=== PATIENT | female | born 1955 | race Caucasian/White ===

== ENCOUNTER 2024-01-16 20:24 | Inpatient (IN) | payer MEDICARE, OTHER ==
[~2024-01-16 20:24] MED LIST: HEPARIN SODIUM,PORCINE 5,000 UNIT/ML 1 ML VIAL ONE
[2024-01-16] MEDS ORDERED: methylPREDNISolone SOD SUCCI 125 MG/2 ML VIAL ONE (20:34)
[2024-01-16] MEDS ORDERED: diphenhydrAMINE 50 MG/ML 1 ML VIAL ONE (20:34)
[2024-01-16] MEDS ORDERED: NITROGLYCERIN SL TABS 0.4 MG TAB SUBLINGUAL ONE ×3 (20:35→21:07)
[2024-01-16] MEDS ORDERED: SODIUM CHLORIDE 0.9% 1,000 ML BAG ONE ×2 (20:50→20:58)
[2024-01-16] MEDS ORDERED: HEPARIN SODIUM,PORCINE 5,000 UNIT/ML 1 ML VIAL ONE (20:50)
[2024-01-16] MEDS ORDERED: SODIUM CHLORIDE 0.9% 250 ML BAG ONE (20:50)
[2024-01-16] MEDS ORDERED: HEPARIN SODIUM,PORCINE 10,000 UNIT/ML 1 ML VIAL ONE ×2 (20:50→20:58)
[2024-01-16] MEDS ORDERED: MIDAZOLAM 2 MG/2 ML VIAL ONE (20:51)
[2024-01-16] MEDS ORDERED: HEPARIN SODIUM 1,000 UN/ML (10ML VL) ONE (20:52)
[2024-01-16] MEDS ORDERED: fentaNYL (PF) 50 MCG/ML 2 ML AMP ONE (20:52)
[2024-01-16] MEDS ORDERED: SODIUM CHLORIDE 0.9% 500 ML BAG ONE (20:58)
[2024-01-16] MEDS ORDERED: LIDOCAINE 1% (PF) 10 MG/ML (30 ML SDV) ONE (20:58)
[2024-01-16] MEDS ORDERED: hydrALAZINE HCL 20 MG/ML 1 ML VIAL ONE (21:00)
[2024-01-16] MEDS ORDERED: TICAGRELOR 90 MG TAB ONE (21:07)
[2024-01-16] MEDS ORDERED: NITROGLYCERIN-D5W PMX 25 MG/250 ML BTL IV ONE ×2 (21:31→21:42)
[2024-01-16] MEDS: IOPAMIDOL-370 200ML BTL INJ ONE (21:45)
[2024-01-17] MEDS ORDERED: GABAPENTIN 300 MG CAP ONE ×3 (02:00→20:34)
[2024-01-17] MEDS ORDERED: MAGNESIUM SULFATE-D5W PMX 100 ML IVPB ONE ×2 (02:00→03:33)
[2024-01-17] MEDS ORDERED: LORATADINE 10 MG TAB ONE (02:02)
[2024-01-17] MEDS ORDERED: HYDROcodone/APAP 10-325MG 1 EACH TAB ONE ×2 (03:32→20:28)
[2024-01-17] MEDS ORDERED: LOSARTAN 50 MG TAB ONE ×3 (08:52→18:28)
[2024-01-17] MEDS ORDERED: METOPROLOL TARTRATE 25 MG TAB ONE ×2 (08:52→20:28)
[2024-01-17] MEDS ORDERED: TICAGRELOR 90 MG TAB ONE ×2 (08:52→20:29)
[2024-01-17] MEDS ORDERED: ACETAMINOPHEN TAB 325 MG TAB ONE ×2 (11:00→23:38)
[2024-01-17] MEDS ORDERED: ASPIRIN 81 MG ONE (13:23)
[2024-01-17] MEDS ORDERED: SPIRONOLACTONE 25 MG TAB ONE (18:29)
[2024-01-17] MEDS ORDERED: PANTOPRAZOLE 40 MG TABLET PO ONE (18:33)
[2024-01-17] MEDS ORDERED: ATORVASTATIN 80 MG TAB ONE (20:28)
[2024-01-17] MEDS ORDERED: LORazepam 0.5 MG TAB ONE (20:28)
[2024-01-17] MEDS ORDERED: AMITRIPTYLINE HCL 25 MG TAB ONE (23:59)
[2024-01-17] MEDS ORDERED: VENLAFAXINE HCL ER 150 MG CAP PO ONE (23:59)
[2024-01-17] MEDS ORDERED: SODIUM CHLORIDE 0.9% 1,000 ML BAG ONE (23:59)
[2024-01-18] MEDS ORDERED: ALBUTEROL NEBULIZED 2.5 MG/3 ML INHALATION ONE (05:11)
[2024-01-18] MEDS ORDERED: PANTOPRAZOLE 40 MG TABLET PO ONE ×2 (06:23→09:55)
[2024-01-18] MEDS ORDERED: GABAPENTIN 300 MG CAP ONE ×3 (06:23→21:30)
[2024-01-18] MEDS ORDERED: HYDROcodone/APAP 10-325MG 1 EACH TAB ONE ×3 (06:23→23:33)
[2024-01-18] MEDS ORDERED: ASPIRIN 325 MG TAB ONE (09:55)
[2024-01-18] MEDS ORDERED: methylPREDNISolone SOD SUCCI 125 MG/2 ML VIAL ONE ×2 (09:55→10:35)
[2024-01-18] MEDS ORDERED: SPIRONOLACTONE 25 MG TAB ONE (09:55)
[2024-01-18] MEDS ORDERED: METOPROLOL TARTRATE 25 MG TAB ONE ×2 (09:55→21:30)
[2024-01-18] MEDS ORDERED: TICAGRELOR 90 MG TAB ONE ×2 (09:56→21:31)
[2024-01-18] MEDS ORDERED: FAMOTIDINE 20 MG TAB ONE (09:56)
[2024-01-18] MEDS ORDERED: diphenhydrAMINE 25 MG CAP ONE (10:14)
[2024-01-18] MEDS ORDERED: LIDOCAINE 1% INJ 10MG/ML (20 ML MDV) ONE (14:47)
[2024-01-18] MEDS ORDERED: VERAPAMIL 2.5 MG/ML 2 ML AMP ONE (14:47)
[2024-01-18] MEDS ORDERED: ATORVASTATIN 80 MG TAB ONE (21:30)
[2024-01-18] MEDS ORDERED: LOSARTAN 50 MG TAB ONE (21:32)
[2024-01-18] MEDS ORDERED: AMITRIPTYLINE HCL 25 MG TAB ONE (23:59)
[2024-01-18] MEDS ORDERED: VENLAFAXINE HCL ER 150 MG CAP PO ONE (23:59)
[2024-01-18] MEDS ORDERED: SODIUM CHLORIDE 0.9% 1,000 ML BAG ONE (23:59)
[2024-01-19] MEDS ORDERED: LORazepam 0.5 MG TAB ONE ×2 (02:37→20:58)
[2024-01-19] MEDS ORDERED: GABAPENTIN 300 MG CAP ONE ×3 (06:19→20:58)
[2024-01-19] MEDS ORDERED: PANTOPRAZOLE 40 MG TABLET PO ONE (06:19)
[2024-01-19] MEDS ORDERED: SODIUM CHLORIDE 0.9% 1,000 ML BAG ONE ×3 (10:30→11:30)
[2024-01-19] MEDS ORDERED: HEPARIN SODIUM,PORCINE 10,000 UNIT/ML 1 ML VIAL ONE (10:30)
[2024-01-19] MEDS ORDERED: ASPIRIN 325 MG TAB ONE (10:30)
[2024-01-19] MEDS ORDERED: SPIRONOLACTONE 25 MG TAB ONE (10:30)
[2024-01-19] MEDS ORDERED: diphenhydrAMINE 50 MG/ML 1 ML VIAL ONE (10:30)
[2024-01-19] MEDS ORDERED: METOPROLOL TARTRATE 25 MG TAB ONE ×2 (10:30→19:56)
[2024-01-19] MEDS ORDERED: methylPREDNISolone SOD SUCCI 125 MG/2 ML VIAL ONE (10:30)
[2024-01-19] MEDS ORDERED: TICAGRELOR 90 MG TAB ONE ×2 (10:31→19:56)
[2024-01-19] MEDS ORDERED: FAMOTIDINE 20 MG/2 ML VIAL ONE (10:31)
[2024-01-19] MEDS ORDERED: NITROGLYCERIN-D5W PMX 25 MG/250 ML BTL IV ONE (11:30)
[2024-01-19] MEDS ORDERED: HEPARIN SODIUM 1,000 UN/ML (10ML VL) ONE (11:39)
[2024-01-19] MEDS ORDERED: MIDAZOLAM 2 MG/2 ML VIAL ONE ×2 (11:39→12:10)
[2024-01-19] MEDS ORDERED: fentaNYL (PF) 50 MCG/ML 2 ML AMP ONE (11:40)
[2024-01-19] MEDS ORDERED: VERAPAMIL 2.5 MG/ML 2 ML AMP ONE ×2 (11:48→12:14)
[2024-01-19] MEDS ORDERED: LIDOCAINE 1% INJ 10MG/ML (20 ML MDV) ONE (11:48)
[2024-01-19] MEDS: IOPAMIDOL-370 200ML BTL INJ ONE (12:40)
[2024-01-19] MEDS ORDERED: HYDROcodone/APAP 10-325MG 1 EACH TAB ONE ×2 (16:17→20:58)
[2024-01-19] MEDS ORDERED: LOSARTAN 50 MG TAB ONE (19:55)
[2024-01-19] MEDS ORDERED: ATORVASTATIN 80 MG TAB ONE (19:56)
[2024-01-19] MEDS ORDERED: AMITRIPTYLINE HCL 25 MG TAB ONE (19:56)
[2024-01-19] MEDS ORDERED: VENLAFAXINE HCL ER 150 MG CAP PO ONE (23:59)
[2024-01-20] MEDS ORDERED: PANTOPRAZOLE 40 MG TABLET PO ONE ×2 (06:13→15:17)
[2024-01-20] MEDS ORDERED: GABAPENTIN 300 MG CAP ONE ×3 (06:13→20:15)
[2024-01-20] MEDS ORDERED: ASPIRIN 81 MG ONE (07:44)
[2024-01-20] MEDS ORDERED: SPIRONOLACTONE 25 MG TAB ONE (07:44)
[2024-01-20] MEDS ORDERED: METOPROLOL TARTRATE 25 MG TAB ONE ×2 (07:44→20:15)
[2024-01-20] MEDS ORDERED: TICAGRELOR 90 MG TAB ONE ×2 (07:45→20:15)
[2024-01-20] MEDS ORDERED: HYDROcodone/APAP 10-325MG 1 EACH TAB ONE (18:36)
[2024-01-20] MEDS ORDERED: AMITRIPTYLINE HCL 25 MG TAB ONE (20:15)
[2024-01-20] MEDS ORDERED: LOSARTAN 50 MG TAB ONE (20:15)
[2024-01-20] MEDS ORDERED: ATORVASTATIN 80 MG TAB ONE (20:26)
[2024-01-20] MEDS ORDERED: LORazepam 0.5 MG TAB ONE (20:41)
[2024-01-20] MEDS ORDERED: VENLAFAXINE HCL ER 150 MG CAP PO ONE (23:59)
[2024-01-21] MEDS ORDERED: PANTOPRAZOLE 40 MG TABLET PO ONE (05:34)
[2024-01-21] MEDS ORDERED: GABAPENTIN 300 MG CAP ONE (05:34)
[2024-01-21] MEDS ORDERED: METOPROLOL TARTRATE 25 MG TAB ONE (08:38)
[2024-01-21] MEDS ORDERED: ASPIRIN 81 MG ONE (08:38)
[2024-01-21] MEDS ORDERED: SPIRONOLACTONE 25 MG TAB ONE (08:38)
[2024-01-21] MEDS ORDERED: TICAGRELOR 90 MG TAB ONE (08:38)
[2024-01-21] MEDS ORDERED: VENLAFAXINE HCL ER 150 MG CAP PO ONE (12:00)
--- NOTE | 2024-02-15 13:56 | CA ---
Transthoracic Echo Report Name: Madi Bermudez Age: 69 Gender: O : 1955 Exam Date: 01/20/2024 11:39 Exam Location: [facility] Ht (in): 67 Wt (lb): 190 Ordering Physician: Attending/Referring Phys: International Relations Teacher Ivanna Gill RDCS Procedure CPT: Indications: Cardiac Hx: stents Technical Quality: Good Contrast 1: Total Dose (mL): Contrast 2: Total Dose (mL): MEASUREMENTS (Male / Female) Normal Values 2D ECHO LV Diastolic Diameter PLAX 4.1 cm 4.2 - 5.9 / 3.9 - 5.3 cm LV Systolic Diameter PLAX 3.2 cm IVS Diastolic Thickness 1.1 cm 0.6 - 1.0 / 0.6 - 0.9 cm LVPW Diastolic Thickness 1.4 cm 0.6 - 1.0 / 0.6 - 0.9 cm LV Relative Wall Thickness 0.6 RV Internal Dim ED PLAX 3.1 cm LA Systolic Diameter LX 3.3 cm 3.0 - 4.0 / 2.7 - 3.8 cm LV Diastolic Volume MOD BP 79.7 cm??? 67 - 155 / 56 - 104 cm??? LV Systolic Volume MOD BP 34.5 cm??? 22 - 58 / 19 - 49 cm??? LV Ejection Fraction MOD BP 56.8 % >= 55 % LV Cardiac Index MOD BP 1616.7 cm???/min???m??? LV Diastolic Volume MOD 4C 72.9 cm??? LV Systolic Volume MOD 4C 29.9 cm??? LV Ejection Fraction MOD 4C 59.0 % LV Cardiac Index MOD 4C 1537.0 cm???/min???m??? LV Diastolic Length 4C 6.6 cm LV Systolic Length 4C 5.4 cm LV Diastolic Volume MOD 2C 84.2 cm??? LV Systolic Volume MOD 2C 38.4 cm??? LV Ejection Fraction MOD 2C 54.4 % LV Cardiac Index MOD 2C 1635.7 cm???/min???m??? LV Diastolic Length 2C 7.1 cm LV Systolic Length 2C 5.7 cm LA Volume 50.7 cm??? 18 - 58 / 22 - 52 cm??? LA Volume Index 24.8 cm???/m??? 16 - 28 cm???/m??? M-MODE Aortic Root Diameter MM 3.6 cm AV Cusp Separation MM 2.2 cm DOPPLER AV Peak Velocity 101.6 cm/s AV Peak Gradient 4.1 mmHg MV Area PHT 1.7 cm??? Mitral E Point Velocity 54.5 cm/s Mitral A Point Velocity 87.4 cm/s Mitral E to A Ratio 0.6 MV Deceleration Time 449.1 ms FINDINGS Left Ventricle Left ventricular ejection fraction is estimated at 50-55 %. Left ventricular cavity size normal. Mild concentric left ventricular hypertrophy. No obvious regional wall motion abnormalities. Right Ventricle Normal right ventricular size. Unable to estimate the right ventricular systolic pressure. Right Atrium Right atrium not well visualized. Left Atrium Normal left atrial size. No left atrial thrombus or mass present. Mitral Valve Mitral valve thickened. Mitral annular calcification. Trace mitral regurgitation. Aortic Valve Trileaflet aortic valve. No aortic valve stenosis or regurgitation. Tricuspid Valve Structurally normal tricuspid valve. No tricuspid stenosis, regurgitation or prolapse. Pulmonic Valve Structurally normal pulmonic valve. Trace pulmonic regurgitation. Pericardium No pericardial or pleural effusion. Aorta Normal size aortic root and proximal ascending aorta. CONCLUSIONS 1. Left ventricular systolic function borderline normal 2. Trace mitral regurgitation Previewed by: Dr. Benjamin English MD (Electronically Signed) Final Date: 20 January 2024 13:32
--- NOTE | 2024-02-17 06:24 | XR ---
Patient Madi Bermudez ID [id number] Order # EXAMINATION TYPE: XR chest 1V DATE OF EXAM: 01/16/2024 COMPARISON: No comparison available on downtime PACS. INDICATION: Chest pain TECHNIQUE: Single frontal view of the chest is obtained. FINDINGS: The heart size is normal. The pulmonary vasculature is normal. Some mild infiltrates in the left upper lung field. Correlate for developing pneumonia and atelectasi s. Minimal infiltrate at the right base may be some atelectasis. IMPRESSION: 1. Mild infiltrate left upper lobe. Correlate for atelectasis and pneumonia. 2. Mild subsegmental atelectasis likely present right lung base.
== END 2024-01-21 12:27 | disposition home or self-care (01) | DRG 322 ==
LOC: EDSEX → CATHCVL 20:24 → MERGE 20:25 → 3SCARD 20:25
PROVIDERS: ADMIT Hospitalist; ATTEND Hospitalist
PROC: 4A023N7 Measurement of Cardiac Sampling and Pressure, Left Heart, Percutaneous Approach (ICD-10-PCS; principal; 2024-01-16 20:58)
PROC: B240ZZ3 Ultrasonography of Single Coronary Artery, Intravascular (ICD-10-PCS; principal; 2024-01-16 20:58)
PROC: B2111ZZ Fluoroscopy of Multiple Coronary Arteries using Low Osmolar Contrast (ICD-10-PCS; principal; 2024-01-16 20:58)
PROC: 02C03Z7 Extirpation of Matter from Coronary Artery, One Artery, Orbital Atherectomy Technique, Percutaneous Approach (ICD-10-PCS; principal; 2024-01-16 20:58)
PROC: 027034Z Dilation of Coronary Artery, One Artery with Drug-eluting Intraluminal Device, Percutaneous Approach (ICD-10-PCS; 2024-01-19 12:00)
DX: I21.4 Non-ST elevation (NSTEMI) myocardial infarction (principal); I25.119 Atherosclerotic heart disease of native coronary artery with unspecified angina pectoris; Z88.5 Allergy status to narcotic agent; K21.9 Gastro-esophageal reflux disease without esophagitis; E66.9 Obesity, unspecified; I10 Essential (primary) hypertension; I73.9 Peripheral vascular disease, unspecified; Z89.611 Acquired absence of right leg above knee
CPT/HCPCS: 71045; 80061; 92973; 92978; 93306; 93458; 96374; 96375; 99291